=== PATIENT | female | born 1990 | race Hispanic/Latino ===

== ENCOUNTER 2018-01-02 14:10 | Observation (INO) | payer MEDICAID ==
[~2018-01-02] VITALS: Ht 157.5 cm; Wt 94.3 kg
[2018-01-02 14:39] LABS: BASOPHILS % (AUTO) 1.7 % (0.0-5.0); EOSINOPHILS % (AUTO) 0.7 % (0.0-8.0); LYMPHOCYTES % (AUTO) 34.5 % (21.0-51.0); MEAN CORPUSCULAR HEMOGLOBIN 15.5 pg (27.0-33.0); MEAN CORPUSCULAR HGB CONC 28.7 g/dL (32.0-36.0); MEAN CORPUSCULAR VOLUME 53.8 fL (79-99); MONOCYTES % (AUTO) 7.5 % (3.0-13.0); NEUTROPHILS % (AUTO) 55.6 % (40.0-77.0); NUCLEATED RED BLOOD CELLS 0.2 % (0.0-0.19); PLATELET COUNT (AUTO) 292 K/uL (130-400); RED BLOOD CELL COUNT(AUTO) 3.57 MIL/uL (4.00-5.50); RED CELL DISTRIBUTION WIDTH 21.6 % (11.0-15.5); WHITE BLOOD COUNT (AUTO) 3.4 K/uL (4.8-10.8)
[2018-01-02 14:50] LABS: CREATININE 0.7 mg/dL (0.5-1.5); HEMATOCRIT 19.2 % (36-48); POTASSIUM 3.7 mmol/L (3.5-5.1)
[2018-01-02 14:52] LABS: INR 1.02 (0.85-1.15); PARTIAL THROMBOPLASTIN TIME 26.1 SEC (26.3-35.5); PROTHROMBIN TIME 10.7 SEC (9.6-11.6)
[2018-01-02 14:55] LABS: ALBUMIN 3.9 g/dL (3.5-5.0); BILIRUBIN,TOTAL 0.4 mg/dL (0.2-1.0); TOTAL PROTEIN, SERUM 8.1 g/dL (6.0-8.3)
[2018-01-02] MEDS ORDERED: DEXTROSE 5 %-0.45 % NACL 1,000 ML IV ONE (19:33)
[2018-01-02 19:55] VITALS: BP 121/76
[2018-01-02] MEDS ORDERED: SULF1TAB42 PO (20:01)
[2018-01-02] MEDS ORDERED: SODIUM CHLORIDE 0.9% 1000ML 1,000 ML IV ONE (20:15)
[2018-01-02 22:58] VITALS: BP 123/65
[2018-01-02 23:58] LABS: APPEARANCE,URINE Turbid (CLEAR); BILIRUBIN,URINE Negative (NEGATIVE); COLOR,URINE Yellow (YELLOW); GLUCOSE, URINE (UA) Negative (NEGATIVE); KETONES,URINE Negative (NEGATIVE); LEUKOCYTE ESTERASE ,URINE Small (NEGATIVE); NITRATE,URINE Negative (NEGATIVE); OCCULT BLOOD,URINE Negative (NEGATIVE); PH,URINE 8.5 (5.0-8.0); PROTEIN,URINE Negative (NEGATIVE)
[2018-01-03 00:24] LABS: BACTERIA,URINE None Seen /HPF (None Seen); RBC,URINE None Seen /HPF (0-1); SQUAMOUS EPITHELIAL CELL,UR Few /HPF (0-2)
[2018-01-03] MEDS: DEXTROSE 5 %-0.45 % NACL 1,000 ML IV SCH ×2 (02:15→06:19)
[2018-01-03 03:23] VITALS: BP 121/63
[2018-01-03 04:28] LABS: HEMATOCRIT 23.6 % (36-48)
[2018-01-03 07:27] VITALS: BP 124/64
[2018-01-03] MEDS ORDERED: FERS325 PO (09:34)
== END 2018-01-03 10:10 | disposition home or self-care (01) ==
LOC: EDH 14:10 → EDHIP 17:50 → WSH 19:55
PROVIDERS: ADMIT Obstetrics & Gynecology; ATTEND Obstetrics & Gynecology
DX: D50.9 Iron deficiency anemia, unspecified (principal)
CPT/HCPCS: 36415 ×2; 36430 ×2; 76856; 80053; 81001; 84703; 85014; 85018; 85025; 85610; 85730; 86850; 86900; 86901; 86922 ×2; 88313; 96360; 96361; 99285; G0378 ×16; J7030; J7042; P9016 ×2